=== PATIENT | male | born 1980 | race Caucasian/White ===

== ENCOUNTER 2024-08-13 08:50 | Outpatient (CLI) | payer BC | END 2024-08-13 08:51 | disposition home or self-care (01) | LOC: CSHSLEEP 08:50 | PROVIDERS: ATTEND Family Medicine | DX: G47.33 Obstructive sleep apnea (adult) (pediatric) (principal); G25.89 Other specified extrapyramidal and movement disorders | CPT/HCPCS: 95811 ==